=== PATIENT | male | born 1950 | race Caucasian/White ===

== ENCOUNTER 2021-08-14 09:34 | Day surgery (SDC) | payer OTHER, MEDICARE ==
[2021-08-07 11:58] LABS: BASOPHILS % (AUTO) 0.4 % (0.0-2.0); EOSINOPHILS # (AUTO) 0.1 K/uL (0.0-0.4); EOSINOPHILS % (AUTO) 0.8 % (0.0-4.0); HEMATOCRIT 45.3 % (36-54); HEMOGLOBIN 15.1 g/dL (14.0-18.0); LYMPHOCYTES # (AUTO) 1.4 K/uL (1.0-5.5); LYMPHOCYTES % (AUTO) 17.1 % (20.5-51.5); MEAN CORPUSCULAR HEMOGLOBIN 30 pg (27-31); MEAN CORPUSCULAR HGB CONC 33 % (32-36); MEAN CORPUSCULAR VOLUME 91 fL (79.0-98.0); MONOCYTES # (AUTO) 0.6 K/uL (0.0-1.0); MONOCYTES % (AUTO) 7.8 % (1.7-9.3); NEUTROPHILS # (AUTO) 5.9 K/uL (1.8-7.7); NEUTROPHILS % (AUTO) 73.9 % (40.0-70.0); PLATELET COUNT (AUTO) 242 K/uL (130-430); RED BLOOD CELL COUNT(AUTO) 4.97 MIL/uL (4.2-6.2); RED CELL DISTRIBUTION WIDTH 13.7 % (9.0-15.0)
[2021-08-07 12:28] LABS: ANION GAP 7 (5-15); BILIRUBIN,URINE NEGATIVE (NEGATIVE); CALCIUM 8.9 mg/dL (8.4-11.0); CHLORIDE 101 mmol/L (98-107); CLARITY/URINE CLEAR (CLEAR); COLOR,URINE YELLOW (YELLOW); CREATININE 0.71 mg/dL (0.55-1.30); GLUCOSE 169 mg/dL (70-99); GLUCOSE,URINE NEGATIVE (NEGATIVE); KETONES,URINE NEGATIVE (NEGATIVE); LEUKOCYTE ESTERASE ,URINE NEGATIVE (NEGATIVE); NITRITE, URINE NEGATIVE (NEGATIVE); PH,URINE 5.5 (5.0-8.0); POTASSIUM 3.6 mmol/L (3.5-5.1); PROTEIN URINE NEGATIVE (NEGATIVE); SODIUM SERUM 139 mmol/L (136-145); UREA NITROGEN, BLOOD 18 mg/dL (8-21); UROBILINOGEN,URINE 0.2 (0.2-1.0)
[2021-08-07 12:30] LABS: BLOOD, URINE TRACE (NEGATIVE)
[2021-08-07 12:59] LABS: PROTHROMBIN TIME 10.1 SECS (9.5-12.5)
[2021-08-07 13:25] LABS: BACTERIA,URINE FEW /HPF (None Seen); WBC,URINE 0-3 /HPF (0-3)
[2021-08-07 13:26] LABS: MUCUS,URINE 1+ /LPF (None Seen)
[~2021-08-14] VITALS: Ht 172.7 cm; Wt 86.2 kg
[2021-08-14] MEDS ORDERED: fentaNYL CITRATE/PF 100 MCG/2 ML AMP IVP ONE (09:35)
[2021-08-14] MEDS ORDERED: SEVOFLURANE 15 MIN GAS INH ONE (09:35)
[2021-08-14] MEDS ORDERED: LIDOCAINE 1% 10 MG/ML, 20 ML MDV INJ ONE (09:35)
[2021-08-14] MEDS ORDERED: BUPIVACAINE /EPINEPHRINE/PF 0.5% 30 ML VIAL INJ ONE (09:35)
[2021-08-14] MEDS ORDERED: KETOROLAC TROMETHAMINE 30 MG VIAL IVP ONE (09:35)
[2021-08-14] MEDS ORDERED: NS IRRIG SOLN 1000 ML IR ONE (09:35)
[2021-08-14] MEDS ORDERED: PROPOFOL 200MG/ 20ML VIAL (DIPRIVAN) IV ONE (09:35)
[2021-08-14] MEDS ORDERED: ONDANSETRON HCL 4 MG/2 ML VIAL IVP ONE (09:35)
[2021-08-14] MEDS ORDERED: LR 1,000 ML IV.SOLN IV ONE (09:35)
[2021-08-14] MEDS ORDERED: DEXAMETHASONE SOD PHOSPHATE 4 MG/ML VIAL IVP ONE (09:35)
[2021-08-14] MEDS ORDERED: MIDAZOLAM HCL 5 MG/5 ML VIAL IVP ONE (09:35)
[2021-08-14] MEDS ORDERED: HYDROmorphone 1 MG/ML INJ. CARTRIDGE IVP PRN ×2 (11:30)
[2021-08-14] MEDS ORDERED: MIDAZOLAM HCL 2 MG/2 ML VIAL (VERSED) IVP PRN (11:30)
[2021-08-14] MEDS ORDERED: LR 1,000 ML IV SCH (11:30)
[2021-08-14] MEDS ORDERED: MEPERIDINE HCL/PF 25 MG/ML DISP.SYRIN IVP PRN (11:30)
[2021-08-14] MEDS ORDERED: hydrALAZINE HCL 20 MG/ML VIAL IVP PRN (11:30)
[2021-08-14] MEDS ORDERED: LABETALOL 100 MG/ 20ML VIAL IVP PRN (11:30)
[2021-08-14] MEDS ORDERED: METOCLOPRAMIDE HCL 10 MG/2 ML VIAL IVP PRN (11:30)
[2021-08-14 15:34] VITALS: BP_SYST 132
== END 2021-08-14 15:30 | disposition home or self-care (01) ==
LOC: SDS 09:34 → SMU 09:35 → SDS 15:30
PROVIDERS: ATTEND Orthopaedic Surgery
DX: S83.241A Other tear of medial meniscus, current injury, right knee, initial encounter (principal); S83.281A Other tear of lateral meniscus, current injury, right knee, initial encounter; M17.11 Unilateral primary osteoarthritis, right knee; Z79.01 Long term (current) use of anticoagulants; Z79.899 Other long term (current) drug therapy; X58.XXXA Exposure to other specified factors, initial encounter; Y93.89 Activity, other specified; Y92.89 Other specified places as the place of occurrence of the external cause; Y99.8 Other external cause status; Z20.822 Contact with and (suspected) exposure to COVID-19
CPT/HCPCS: 29880; 36415 ×3; 71046; 80048; 81000; 85025; 85610; 85730; 87426; 87635 ×2; J1100; J1885; J2001; J2250; J2405; J2704; J3010; J3490; J7120; U0003